=== PATIENT | male | born 1985 | race Caucasian/White ===

== ENCOUNTER 2018-05-12 08:50 | Emergency (ER) | payer OTHER, BC ==
[2018-05-12 08:57] VITALS: BP 144/81; PULSE 76; TEMP 98.5; BMI 28.5
[2018-05-12] MEDS ORDERED: IBUPROFEN 600 MG TABLET (FP) PO ONE ×2 (09:10→09:15)
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
== END 2018-05-12 09:25 | disposition home or self-care (01) ==
LOC: JERFT 08:50
DX: M54.2 Cervicalgia (principal); M25.512 Pain in left shoulder; M25.522 Pain in left elbow; V01.00XA Pedestrian on foot injured in collision with pedal cycle in nontraffic accident, initial encounter; Y92.414 Local residential or business street as the place of occurrence of the external cause; Y93.H9 Activity, other involving exterior property and land maintenance, building and construction; Y99.0 Civilian activity done for income or pay
CPT/HCPCS: 99281-25

== ENCOUNTER 2020-07-19 10:33 | Emergency (ER) | payer BC ==
[2020-07-19 10:41] VITALS: BP 139/92; TEMP 99.1; BMI 27.3
--- NOTE | 2020-07-19 11:05 | PDOC ---
History of Present Illness - General Chief Complaint: Chest Pain Stated Complaint: CHEST PAIN Time Seen by Provider: 07/19/20 10:57 History Source: Patient - History of Present Illness Presenting Symptoms: Chest Pain Timing/Duration: reports: intermittent Severity/Quality: reports: mild Past History - Medical History Allergies/Adverse Reactions: Allergies Allergy/AdvReac Type Severity Reaction Status Date / Time No Known Allergies Allergy Verified 05/12/18 08:54 Home Medications: Ambulatory Orders NK [No Known Home Medication] 05/12/18 COPD: No GI Disorders: Yes (Acid reflux) - Immunization History Immunization Up to Date: Yes - Psycho-Social/Smoking History Smoking History: Never smoked Have you smoked in the past 12 months: No - Substance Abuse Hx (Audit-C & DAST Scrn) How often the patient has a drink containing alcohol: Never Score: In Men: 4 or > Positive; In Women: 3 or > Positive: 0 Screen Result (Pos requires Nsg. Audit-10AR): Negative In the last yr the pt used illegal drug/Rx for NonMed reason: No Score: Yes response is considered Positive: 0 Screen Result (Positive result requires Nsg. DAST-10): Negative Review of Systems - Review of Systems Constitutional: No: Chills, Fever Respiratory: No: Cough, Shortness of Breath Cardiac (ROS): Yes: Chest Pain. No: Lightheadedness, Palpitations, Syncope *Physical Exam - Vital Signs Last Vital Signs Temp Pulse Resp BP Pulse Ox 99.1 F 102 H 18 139/92 100 07/19/20 10:36 07/19/20 10:36 07/19/20 10:36 07/19/20 10:36 07/19/20 10:36 - Physical Exam General Appearance: Yes: Appropriately Dressed. No: Apparent Distress HEENT: positive: Normal Voice Neck: positive: Supple Respiratory/Chest: positive: Lungs Clear, Normal Breath Sounds. negative: Respiratory Distress Cardiovascular: positive: Regular Rate, S1, S2 Gastrointestinal/Abdominal: positive: Soft. negative: Tender Extremity: negative: Tender, Swelling, Calf Tenderness Integumentary: positive: Dry, Warm Neurologic: positive: Fully Oriented, Alert, Normal Mood/Affect ED Treatment Course - LABORATORY CBC & Chemistry Diagram: 07/19/20 11:19 07/19/20 11:19 - ADDITIONAL ORDERS Additional order review: Laboratory Results 07/19/20 07/19/20 11:19 11:19 D-Dimer < 215 Sodium 139 Potassium 4.1 Chloride 104 Carbon Dioxide 31 Anion Gap 4 L BUN 14.8 Creatinine 0.9 Est GFR (CKD-EPI)AfAm 126.90 Est GFR (CKD-EPI)NonAf 109.49 Random Glucose 119 H Calcium 9.5 Total Bilirubin 0.6 AST 15 ALT 30 Alkaline Phosphatase 63 Creatine Kinase 245 Troponin I < 0.02 Total Protein 8.1 Albumin 4.5 07/19/20 11:19 RBC 5.07 MCV 85.9 MCHC 34.2 RDW 12.7 MPV 11.6 H Neutrophils % 70.2 D Lymphocytes % 22.4 D Monocytes % 5.9 Eosinophils % 0.7 Basophils % 0.8 - RADIOLOGY Radiology Studies Ordered: Category Date Time Status CHEST PA & LAT [RAD] Stat Radiology 07/19/20 11:30 Completed Medical Decision Making - Medical Decision Making 07/19/20 11:03 35-year-old male, denies any past medical history except for heartburn, takes pantoprazole daily, here with left-sided non-radiating discomfort to left chest. Patient states pain started last night, describes it as "a knot" and may be worse when he is talking. Denies any shortness of breath, diaphoresis, nausea, vomiting. No palpitations, leg pain or swelling or obvious risk factors for DVT/PE. No history of similar pain and pain does not feel like his heartburn. Denies any illicit drugs or tob use. No significant family history see exam CP No RF for CAD No obvious RF for DVT/PE No illicit drug use Tachy to 102 but well brigid w/ clear chest/lungs otherwise -EKG -CXR -1 trop given duration of sxs -d-dimer given mild tachycardia though unlikely PE -Anticipate dc home 07/19/20 12:22 EKG, chest x-ray and labs are unremarkable as discussed with Dr. Gómez. Patient remained stable and well-appearing here with repeat heart rate 77 on discharge. To follow-up with his PMD as discussed with patient Discharge - Discharge Information Problems reviewed: Yes Clinical Impression/Diagnosis: Chest pain Qualifiers: Chest pain type: unspecified Qualified Code(s): R07.9 - Chest pain, unspecified Condition: Good Disposition: HOME - Follow up/Referral Referrals: Diego Gu MD [Primary Care Provider] - - Patient Discharge Instructions Patient Printed Discharge Instructions: DI for Chest Pain Additional Instructions: Your chest pain does not appears to be cardiac related as your EKG/CXR and labs were all unremarkable Please follow up with your PMD as needed - Post Discharge Activity
[2020-07-19 11:32] LABS: BASO % 0.8 % (0-2.0); EOS % 0.7 % (0-4.5); HEMATOCRIT 43.6 % (35.4-49); HEMOGLOBIN 14.9 GM/dL (11.7-16.9); LYMPH % 22.4 % (8-40); MCH 29.4 pg (25.7-33.7); MCHC 34.2 g/dl (32.0-35.9); MEAN CELL VOLUME 85.9 fl (80-96); MEAN PLT VOLUME 11.6 fl (7.5-11.1); MONO % 5.9 % (3.8-10.2); NEUT % 70.2 % (42.8-82.8); PLATELET COUNT 207 K/MM3 (134-434); RBC 5.07 M/mm3 (4.00-5.60); RDW 12.7 % (11.9-15.9); WHITE BLOOD COUNT 6.6 K/mm3 (4.0-10.0)
[2020-07-19 12:10] LABS: ALBUMIN 4.5 g/dl (3.4-5.0); ALK PHOS 63 U/L (45-117); ANION GAP 4 MMOL/L (8-16); BILIRUBIN,TOTAL 0.6 mg/dL (0.2-1); BLOOD UREA NITROGEN 14.8 mg/dL (7-18); CALCIUM 9.5 mg/dL (8.5-10.1); CHLORIDE 104 mmol/L (98-107); CO2 31 mmol/L (21-32); CREATININE 0.9 mg/dL (0.55-1.3); GLUCOSE,RANDOM 119 mg/dL (74-106); POTASSIUM 4.1 mmol/L (3.5-5.1); SGOT/AST 15 U/L (15-37); SGPT/ALT 30 U/L (13-61); SODIUM 139 mmol/L (136-145); TOT PROT 8.1 g/dl (6.4-8.2)
[2020-07-19 12:29] VITALS: PULSE 77
--- NOTE | 2020-07-21 20:03 | EKG ---
Test Reason : Blood Pressure : / mmHG Vent. Rate : 088 BPM Atrial Rate : 088 BPM P-R Int : 150 ms QRS Dur : 104 ms QT Int : 350 ms P-R-T Axes : 057 044 046 degrees QTc Int : 423 ms NORMAL SINUS RHYTHM INCOMPLETE RIGHT BUNDLE BRANCH BLOCK BORDERLINE ECG WHEN COMPARED WITH ECG OF 09-APR-2009 15:16, NO SIGNIFICANT CHANGE WAS FOUND Confirmed by JAY AREVALO MD ([id number]) on 07/21/2020 8:03:06 PM Referred By: Confirmed By:JAY AREVALO MD
== END 2020-07-19 12:25 | disposition home or self-care (01) ==
LOC: JER 10:33
DX: R07.9 Chest pain, unspecified (principal)
CPT/HCPCS: 36415; 71046-TC-FY; 80053; 82550; 82553; 84484; 85025; 85379; 93005; 93010; 99285-25

== ENCOUNTER 2022-01-01 09:48 | Emergency (ER) | payer OTHER, BC ==
[2022-01-01 09:57] VITALS: BP 120/84; PULSE 82; TEMP 98; BMI 27.3
== END 2022-01-01 10:50 | disposition home or self-care (01) ==
LOC: JERFT 09:48
DX: S93.491A Sprain of other ligament of right ankle, initial encounter (principal); X50.9XXA Other and unspecified overexertion or strenuous movements or postures, initial encounter
CPT/HCPCS: 73610-TC-RT-FY; 99283-25

== ENCOUNTER 2024-07-03 05:23 | Emergency (ER) | payer BC ==
[2024-07-03 06:01] VITALS: BP 153/109; PULSE 94; RESP 18; TEMP 98.4; BMI 28.1
[2024-07-03 06:31] LABS: BASO % 0.8 % (0-2.0); EOS % 1.5 % (0-4.5); HEMATOCRIT 42.6 % (35.4-49); HEMOGLOBIN 14.1 GM/dL (11.7-16.9); MCH 28.5 pg (25.7-33.7); MCHC 33.1 g/dl (32.0-35.9); MEAN PLT VOLUME 11.5 fl (7.5-11.1); MONO % 7.1 % (3.8-10.2); NEUT % 62.6 % (42.8-82.8); PLATELET COUNT 186 10^3/uL (134-434); RBC 4.95 M/mm3 (4.00-5.60); RDW 12.9 % (11.9-15.9); WHITE BLOOD COUNT 6.1 K/mm3 (4.0-10.0)
[2024-07-03 06:49] LABS: POTASSIUM 5.2 mmol/L (3.5-5.1)
[2024-07-03 06:51] LABS: CALCIUM 9.1 mg/dL (8.5-10.1)
[2024-07-03 06:55] LABS: CREATININE 0.8 mg/dL (0.55-1.3)
[2024-07-03 06:56] LABS: TOT PROT 7.3 g/dl (6.4-8.2)
[2024-07-03 06:58] LABS: BILIRUBIN,TOTAL 0.7 mg/dL (0.2-1)
== END 2024-07-03 07:30 | disposition home or self-care (01) ==
LOC: JER 05:23
DX: R07.89 Other chest pain (principal); R20.0 Anesthesia of skin; R20.2 Paresthesia of skin
CPT/HCPCS: 36415; 80053; 84484; 85025; 93005; 93010; 99284-25